=== PATIENT | male | born 1990 | race Caucasian/White ===

== ENCOUNTER 2018-06-23 14:28 | Emergency (ER) | payer OTHER ==
[~2018-06-23] VITALS: Ht 175.3 cm; Wt 112.5 kg
[2018-06-23 14:47] VITALS: BP 140/78; Ht 175.3 cm; Wt 112.5 kg
== END 2018-06-23 17:31 | disposition home or self-care (01) ==
LOC: ED 14:28
DX: M79.671 Pain in right foot (principal)